=== PATIENT | male | born 1980 | race Caucasian/White ===

== ENCOUNTER 2017-01-23 03:46 | Emergency (ER) ==
[2017-01-23 03:54] VITALS: BP 131/79
[2017-01-23] MEDS ORDERED: CLEOCIN PO ONE (04:20)
[2017-01-23] MEDS ORDERED: MOTRIN PO ONE (04:21)
--- NOTE | 2017-01-23 04:30 | PROVIDER DOCUMENTATION ---
HPI-Rash/Wound/ReCheck - General Chief Complaint: Abscess Stated Complaint: INSECT BITE/STING Time Seen by Provider: 01/23/17 04:17 Source: patient (Patient is a 36 year old white male complaining of red tender lesion over left groin since tonight. Denies fever. Lesion has been draining pus.) Allergies/Adverse Reactions: Allergies Allergy/AdvReac Type Severity Reaction Status Date / Time peas Allergy NAUSEA Verified 01/23/17 03:54 Tetanus Vaccines and Toxoid Allergy SWELLING Verified 01/23/17 03:54 [Tetanus Vaccines & Toxoid] Home Medications: Home Medication List Medication Instructions Recorded Confirmed Last Taken Type Clindamycin HCl 300 mg PO TID #30 capsule 01/23/17 Unknown Rx - History of Present Illness-Dermatology Location: reports: other (left groin) Quality: reports: other (sharp) Severity: reports: moderate Onset/Duration: reports: gradual, this evening Timing: reports: still present Identifiable cause?: No Locality of Occurance: Home Similar Symptoms Previously?: No Recently seen or treated by another doctor?: No Review of Systems - Adult - REVIEW OF SYSTEMS - ADULT Constitutional: denies: chills, fever Eyes: reports: no symptoms reported Ears, Nose, Mouth & Throat: reports: no symptoms reported Cardiovascular: reports: no symptoms reported Respiratory: reports: no symptoms reported Gastrointestinal: reports: no symptoms reported Genitourinary: reports: no symptoms reported Musculoskeletal: reports: no symptoms reported Integumentary: reports: see HPI Neurological: reports: no symptoms reported Psychiatric: reports: no symptoms reported Endocrine: reports: no symptoms reported Hematologic/Lymphatic: reports: no symptoms reported Allergic/Immunologic: reports: no symptoms reported All Other Systems: Reviewed and Negative Past History - Adult - PAST MEDICAL HISTORY-ADULT Review of Records: reports: Old Records Reviewed, Nursing Assessment Review, Medications Reviewed, Social history reviewed & non-contributory. Major Childhood Illnesses: reports: denies history Cardiovascular: reports: denies history Respiratory: reports: asthma Gastrointestinal: reports: colitis Genitourinary: reports: kidney stones Musculoskeletal: reports: arthritis, fibromyalgia Neurological: reports: Seizures/Epilepsy Psychiatric: reports: anxiety, bipolar Endocrine/Immune: reports: denies history Other Conditions: reports: denies history - PRIOR SURGERIES/PROCEDURES Surgical/Procedure History: reports: other (polyps removed from colon) - IMMUNIZATION STATUS Childhood Immunizations: See Nurse Assessment Flu Vaccine: See Nurse Assessment - FAMILY HISTORY Family History: reviewed, not pertinent Physical Exam-General - PHYSICAL EXAM-ADULT Initial Vital Signs Reviewed: Yes - CONSTITUTIONAL General Appearance: appears well, alert - EYES Eyes: other (clear) - HEAD, EARS, NOSE, MOUTH & THROAT HENMT: normocephalic/atraumatic - NECK Neck: supple - RESPIRATORY Respiratory: lungs clear - CARDIOVASCULAR Cardiovascular: regular rate, rhythm - GASTROINTESTINAL (ABDOMEN) Abdominal Exam: normal bowel sounds, non tender, soft - GENITOURINARY Male Genitalia: normal genitalia Rectal Exam: deferred - MUSCULOSKELETAL Back Exam: normal inspection Extremity: other (tender red indurated lesion over left groin with central black eschar) - SKIN Integumentary: normal turgor - NEUROLOGIC Neurologic: grossly normal - PSYCHIATRIC Psych/Mental Status: oriented x 3, anxious Departure - Departure Time of Disposition Order: 04:30 DIAGNOSIS: Spider bite wound Qualifiers: Encounter type: initial encounter Injury intent: accidental or unintentional Qualified Code(s): T63.301A - Toxic effect of unspecified spider venom, accidental (unintentional), initial encounter Disposition: HOME 01 Certified Medical Emergency: Emergent Condition: Stable Additional Instructions: warm compresses to affected area, followup with primary care doctor on Wednesday Prescriptions: Clindamycin HCl 300 mg PO TID #30 capsule Referrals: None,PCP [Primary Care Provider] - Forms: Return to School/Parent Work Instructions: Clindamycin capsules, Spider Bite, [id number]
== END 2017-01-23 04:31 | disposition home or self-care (01) ==
LOC: P.ED 03:46
DX: S30.861A Insect bite (nonvenomous) of abdominal wall, initial encounter (principal); W57.XXXA Bitten or stung by nonvenomous insect and other nonvenomous arthropods, initial encounter; L98.9 Disorder of the skin and subcutaneous tissue, unspecified; M19.90 Unspecified osteoarthritis, unspecified site; M79.7 Fibromyalgia
CPT/HCPCS: 99282

== ENCOUNTER 2017-01-23 04:49 | Emergency (ER) ==
[2017-01-23 04:56] VITALS: BP 127/91
[2017-01-23] MEDS ORDERED: MOTRIN PO ONE (05:02)
[2017-01-23] MEDS ORDERED: NORCO-5 PO ONE (05:03)
--- NOTE | 2017-01-23 05:08 | PROVIDER DOCUMENTATION ---
HPI-Rash/Wound/ReCheck - General Chief Complaint: Abscess Stated Complaint: SPIDER BITE Time Seen by Provider: 01/23/17 04:56 Source: patient Allergies/Adverse Reactions: Allergies Allergy/AdvReac Type Severity Reaction Status Date / Time peas Allergy NAUSEA Verified 01/23/17 03:54 Tetanus Vaccines and Toxoid Allergy SWELLING Verified 01/23/17 03:54 [Tetanus Vaccines & Toxoid] Home Medications: Home Medication List Medication Instructions Recorded Confirmed Last Taken Type Clindamycin HCl 300 mg PO TID #30 capsule 01/23/17 01/23/17 Unknown Rx Hydrocodone/Acetaminophen [[place] 1 each PO Q4-6H PRN PRN #12 tablet 01/23/17 Unknown Rx 5-325 Tablet] Ibuprofen [Motrin] 800 mg PO Q8H PRN PRN #30 tablet 01/23/17 Unknown Rx - History of Present Illness-Dermatology Nature of Presenting Problem: pt states he was driving and around 6 PM he felt a sharp pain in his left groin area and this area has since tdeveloped a black area with a ring of redness around it and it hurts. He was just seen for this moments ago at [facility] and started on Clindamycin. No fevers, abdominal pain or nausea/vomiting Review of Systems - Adult - REVIEW OF SYSTEMS - ADULT Constitutional: denies: chills, fever Eyes: denies: discharge Ears, Nose, Mouth & Throat: denies: ear pain, sinus problem, throat pain Respiratory: denies: cough, shortness of breath Gastrointestinal: denies: abdominal pain, diarrhea, nausea, vomiting Genitourinary: denies: dysuria, frequency, flank pain Musculoskeletal: denies: back pain, muscle aches Integumentary: reports: see HPI Neurological: denies: headache/migraines, numbness, paresthesia Psychiatric: reports: no symptoms reported Endocrine: reports: no symptoms reported Hematologic/Lymphatic: reports: no symptoms reported All Other Systems: Reviewed and Negative Past History - Adult - PAST MEDICAL HISTORY-ADULT Review of Records: reports: Old Records Reviewed, Nursing Assessment Review, Medications Reviewed, Social history reviewed & non-contributory. Major Childhood Illnesses: reports: denies history Cardiovascular: reports: denies history Respiratory: reports: asthma Gastrointestinal: reports: colitis Genitourinary: reports: kidney stones Musculoskeletal: reports: arthritis, fibromyalgia Neurological: reports: Seizures/Epilepsy Psychiatric: reports: anxiety, bipolar Endocrine/Immune: reports: denies history Other Conditions: reports: denies history - PRIOR SURGERIES/PROCEDURES Surgical/Procedure History: reports: other (polyps removed from colon) - IMMUNIZATION STATUS Childhood Immunizations: See Nurse Assessment Flu Vaccine: See Nurse Assessment - FAMILY HISTORY Family History: reviewed, not pertinent - SOCIAL HISTORY Smoking: greater than 1 pack/day Substance Use: alcohol Alcohol Use Frequency: occasionally Living Situation: family Physical Exam-General - PHYSICAL EXAM-ADULT Initial Vital Signs Reviewed: Yes - CONSTITUTIONAL General Appearance: appears well, alert, no apparent distress, anxious - EYES Eyes: pink conjunctivae. negative: scleral icterus - HEAD, EARS, NOSE, MOUTH & THROAT HENMT: normocephalic/atraumatic, pharynx normal - NECK Neck: non-tender, full range of motion, supple, normal inspection. negative: lymphadenopathy - RESPIRATORY Respiratory: chest non-tender, lungs clear, normal breath sounds, no pleuratic chest pain, no respiratory distress - CARDIOVASCULAR Cardiovascular: regular rate, rhythm, no murmur - GASTROINTESTINAL (ABDOMEN) Abdominal Exam: normal bowel sounds, non tender, soft, no organomegaly, no pulsatile mass - MUSCULOSKELETAL Back Exam: normal inspection, no CVA tenderness, no vertebral tenderness Extremity: normal range of motion, non-tender, normal gait, normal inspection, no pedal edema, no calf tenderness - SKIN Integumentary: other (pt has a 2mm raised black area in the left inguinal area with an area of redness of about 1 cm) - 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, grossly normal, no motor/sensory deficits - PSYCHIATRIC Psych/Mental Status: normal mood/affect, normal thought content, normal thought process, oriented x 3 Progress - PLAN OF CARE/RESULTS Progress/Plan/Lab Results: Orders Category Date Time Status Hydrocodone/APAP 5 mg/325 mg [[place]-5] Med 01/23/17 05:03 Discontinued 1 each PO NOW ONE Ibuprofen [Motrin] Med 01/23/17 05:02 Discontinued 800 mg PO NOW ONE Vital Signs Temp Pulse Resp BP Pulse Ox 01/23/17 04:55 97.3 F L 104 H 22 127/91 100 peas Allergy (Verified 01/23/17 03:54) NAUSEA Tetanus Vaccines and Toxoid [Tetanus Vaccines & Toxoid] Allergy (Verified 03:54) SWELLING Clindamycin HCl 300 mg PO TID #30 capsule 01/23/17 Departure - Departure Time of Disposition Order: 05:08 DIAGNOSIS: Spider bite wound Qualifiers: Encounter type: subsequent encounter Injury intent: accidental or unintentional Qualified Code(s): T63.301D - Toxic effect of unspecified spider venom, accidental (unintentional), subsequent encounter Disposition: HOME 01 Certified Medical Emergency: Emergent Condition: Good Additional Instructions: ED Follow Up Instructions: You have been treated by a care provider in the Emergency Department. These instructions are being provided to you so you can have an understanding of how to care for yourself upon discharge. Upon discharge from the Emergency Department, you are responsible for making arrangements for follow-up care by a physician of your choice. Take all prescribed medications as directed. Return to the Emergency Department immediately for any new or worsening symptoms. You may call the Physician Referral phone number at [phone] to obtain a list of Physicians who are taking new patients. Prescriptions: Ibuprofen [Motrin] 800 mg PO Q8H PRN PRN #30 tablet PRN Reason: Pain Hydrocodone/Acetaminophen [[place] 5-325 Tablet] 1 each PO Q4-6H PRN PRN #12 tablet PRN Reason: Pain Referrals: None,PCP [Primary Care Provider] - Instructions: Wound Infection, [id number]
== END 2017-01-23 05:41 | disposition home or self-care (01) ==
LOC: ED 04:49
DX: S30.861A Insect bite (nonvenomous) of abdominal wall, initial encounter (principal); W57.XXXA Bitten or stung by nonvenomous insect and other nonvenomous arthropods, initial encounter; R10.30 Lower abdominal pain, unspecified; M19.90 Unspecified osteoarthritis, unspecified site; M79.7 Fibromyalgia; F17.210 Nicotine dependence, cigarettes, uncomplicated

== ENCOUNTER 2017-01-25 03:59 | Emergency (ER) ==
[2017-01-25 04:05] VITALS: BP 127/87
[2017-01-25] MEDS ORDERED: DECADRON IM ONE (04:14)
[2017-01-25] MEDS ORDERED: PHENERGAN IM ONE (04:14)
--- NOTE | 2017-01-25 04:20 | PROVIDER DOCUMENTATION ---
HPI-Rash/Wound/ReCheck - General Chief Complaint: Insect Bite/Sting Stated Complaint: RECHECK/INSECT BITE Time Seen by Provider: 01/25/17 04:09 Source: patient Allergies/Adverse Reactions: Allergies Allergy/AdvReac Type Severity Reaction Status Date / Time peas Allergy NAUSEA Verified 01/25/17 04:05 Tetanus Vaccines and Toxoid Allergy SWELLING Verified 01/25/17 04:05 [Tetanus Vaccines & Toxoid] Home Medications: Home Medication List Medication Instructions Recorded Confirmed Last Taken Type Clindamycin HCl 300 mg PO TID #30 capsule 01/23/17 01/23/17 Unknown Rx Hydrocodone/Acetaminophen [[place] 1 each PO Q4-6H PRN PRN #12 tablet 01/23/17 Unknown Rx 5-325 Tablet] Ibuprofen [Motrin] 800 mg PO Q8H PRN PRN #30 tablet 01/23/17 Unknown Rx - History of Present Illness-Dermatology Nature of Presenting Problem: pt was likely bitten by a spider 2 days ago and was started on clindamycin and then later also given a norco and motrin RX, he comes back tonight worried that it is worse and he states he vomited once. No fevers. Review of Systems - Adult - REVIEW OF SYSTEMS - ADULT Constitutional: denies: chills, fever Eyes: denies: discharge Ears, Nose, Mouth & Throat: denies: ear pain, sinus problem, throat pain Cardiovascular: denies: chest pain Respiratory: denies: cough, shortness of breath Gastrointestinal: reports: nausea, vomiting (once). denies: abdominal pain, diarrhea Genitourinary: denies: dysuria, frequency Musculoskeletal: denies: muscle aches Integumentary: denies: rash Neurological: denies: headache/migraines, numbness, paresthesia Psychiatric: reports: no symptoms reported Endocrine: reports: no symptoms reported Hematologic/Lymphatic: reports: no symptoms reported Allergic/Immunologic: reports: no symptoms reported All Other Systems: Reviewed and Negative Past History - Adult - PAST MEDICAL HISTORY-ADULT Review of Records: reports: Old Records Reviewed, Nursing Assessment Review, Medications Reviewed, Social history reviewed & non-contributory. Major Childhood Illnesses: reports: denies history Cardiovascular: reports: denies history Respiratory: reports: asthma Gastrointestinal: reports: colitis Genitourinary: reports: kidney stones Musculoskeletal: reports: arthritis, fibromyalgia Neurological: reports: Seizures/Epilepsy Psychiatric: reports: anxiety, bipolar Endocrine/Immune: reports: denies history Other Conditions: reports: denies history - PRIOR SURGERIES/PROCEDURES Surgical/Procedure History: reports: other (polyps removed from colon) - IMMUNIZATION STATUS Childhood Immunizations: See Nurse Assessment Flu Vaccine: See Nurse Assessment - FAMILY HISTORY Family History: reviewed, not pertinent - SOCIAL HISTORY Smoking: less than 1 pack/day Substance Use: alcohol Alcohol Use Frequency: occasionally Living Situation: family Physical Exam-General - PHYSICAL EXAM-ADULT Initial Vital Signs Reviewed: Yes - CONSTITUTIONAL General Appearance: appears well, alert, no apparent distress, anxious - EYES Eyes: pink conjunctivae. negative: scleral icterus - HEAD, EARS, NOSE, MOUTH & THROAT HENMT: normocephalic/atraumatic - NECK Neck: non-tender, full range of motion - RESPIRATORY Respiratory: chest non-tender, lungs clear, normal breath sounds, no pleuratic chest pain, no respiratory distress, no accessory muscle use - CARDIOVASCULAR Cardiovascular: regular rate, rhythm, no murmur - GASTROINTESTINAL (ABDOMEN) Abdominal Exam: normal bowel sounds, non tender, soft, no organomegaly, no pulsatile mass - MUSCULOSKELETAL Back Exam: normal inspection, no CVA tenderness, no vertebral tenderness Extremity: normal range of motion, non-tender, normal gait, normal inspection, no pedal edema, no calf tenderness - SKIN Integumentary: normal color, normal turgor, warm/dry, other (pt has a 3mm raised purple black papule with 1-2 cm of surrounding redness which is slightly larger than when i saw this 48 hours ago. No fluctuance) - NEUROLOGIC Neurologic: grossly normal, no motor/sensory deficits - PSYCHIATRIC Psych/Mental Status: normal mood/affect, normal thought content, normal thought process, oriented x 3, anxious Progress - PLAN OF CARE/RESULTS Progress/Plan/Lab Results: Orders Category Date Time Status Dexamethasone [Decadron] Med 01/25/17 04:14 Discontinued 20 mg IM NOW ONE Promethazine [Phenergan] Med 01/25/17 04:14 Discontinued 50 mg IM NOW ONE Vital Signs Temp Pulse Resp BP Pulse Ox 01/25/17 04:04 97.5 F L 84 20 127/87 100 peas Allergy (Verified 01/25/17 04:05) NAUSEA Tetanus Vaccines and Toxoid [Tetanus Vaccines & Toxoid] Allergy (Verified 04:05) SWELLING Clindamycin HCl 300 mg PO TID #30 capsule 01/23/17 Hydrocodone/Acetaminophen [[place] 5-325 Tablet] 1 each PO Q4-6H PRN PRN #12 tablet 01/23/17 Ibuprofen [Motrin] 800 mg PO Q8H PRN PRN #30 tablet 01/23/17 Departure - Departure Time of Disposition Order: 04:20 DIAGNOSIS: Spider bite wound Qualifiers: Encounter type: subsequent encounter Injury intent: accidental or unintentional Qualified Code(s): T63.301D - Toxic effect of unspecified spider venom, accidental (unintentional), subsequent encounter Disposition: HOME 01 Certified Medical Emergency: Emergent Condition: Good Additional Instructions: ED Follow Up Instructions: You have been treated by a care provider in the Emergency Department. These instructions are being provided to you so you can have an understanding of how to care for yourself upon discharge. Upon discharge from the Emergency Department, you are responsible for making arrangements for follow-up care by a physician of your choice. Take all prescribed medications as directed. Return to the Emergency Department immediately for any new or worsening symptoms. You may call the Physician Referral phone number at [phone] to obtain a list of Physicians who are taking new patients.
== END 2017-01-25 04:36 | disposition home or self-care (01) ==
LOC: ED 03:59
DX: Z09 Encounter for follow-up examination after completed treatment for conditions other than malignant neoplasm (principal); R11.2 Nausea with vomiting, unspecified; M19.90 Unspecified osteoarthritis, unspecified site; M79.7 Fibromyalgia; R56.9 Unspecified convulsions; F41.9 Anxiety disorder, unspecified; F31.9 Bipolar disorder, unspecified; F17.210 Nicotine dependence, cigarettes, uncomplicated
CPT/HCPCS: J2550

== ENCOUNTER 2017-01-26 02:48 | Emergency (ER) ==
--- NOTE | 2017-01-26 03:51 | PROVIDER DOCUMENTATION ---
HPI-Psychological Disorder - General Chief Complaint: Anxiety Stated Complaint: STRESS/HEART Time Seen by Provider: 01/26/17 03:43 Source: patient Allergies/Adverse Reactions: Patient Allergies Allergy/AdvReac Type Severity Reaction Status Date / Time peas Allergy NAUSEA Verified 01/26/17 02:55 Tetanus Vaccines and Toxoid Allergy SWELLING Verified 01/26/17 02:55 [Tetanus Vaccines & Toxoid] Home Medications: Home Medication List Medication Instructions Recorded Confirmed Last Taken Type Clindamycin HCl 300 mg PO TID #30 capsule 01/23/17 01/26/17 01/24/17 Rx Hydrocodone/Acetaminophen [[place] 1 each PO Q4-6H PRN PRN #12 tablet 01/23/1701/24/17 Rx 5-325 Tablet] Ibuprofen [Motrin] 800 mg PO Q8H PRN PRN #30 tablet 01/23/17 01/26/17 01/24/17 Rx Hydroxyzine HCl 25 mg PO TID PRN PRN #30 tablet 01/26/17 Unknown Rx - History of Present Illness-Psych Nature of Presenting Problem: lots of anxiety hx of frequent visits to er for lots of anxiety was walking here from 5 or so miles away decided to call 911 too far to walk not sure about what troubles him.no medications Onset/Duration: reports: unsure Timing: reports: still present Severity: reports: mild Situational problems related to:: reports: other Psychiatric Complaints: reports: anxiety. denies: hallucinating, homicidal thoughts, suicidal ideation Substance Use: reports: none/never Previous psych related hospitalizations?: Yes Patient arrived by:: EMS called by patient Similar Symptoms Previously?: Yes Recently seen or treated by another doctor?: Yes Review of Systems - Adult - REVIEW OF SYSTEMS - ADULT Constitutional: reports: no symptoms reported Eyes: reports: no symptoms reported Ears, Nose, Mouth & Throat: reports: no symptoms reported Cardiovascular: reports: palpitations Respiratory: reports: shortness of breath Gastrointestinal: reports: no symptoms reported Genitourinary: reports: no symptoms reported Musculoskeletal: reports: no symptoms reported Integumentary: reports: no symptoms reported Neurological: reports: no symptoms reported Psychiatric: reports: anxiety, depression, emotional problems. denies: suicidal thoughts Endocrine: reports: no symptoms reported Hematologic/Lymphatic: reports: no symptoms reported Allergic/Immunologic: reports: no symptoms reported Past History - Adult - PAST MEDICAL HISTORY-ADULT Review of Records: reports: Nursing Assessment Review, Medications Reviewed, Social history reviewed & non-contributory. Major Childhood Illnesses: reports: denies history Cardiovascular: reports: denies history Respiratory: reports: asthma Gastrointestinal: reports: colitis Genitourinary: reports: kidney stones Musculoskeletal: reports: arthritis, fibromyalgia Neurological: reports: Seizures/Epilepsy Psychiatric: reports: anxiety, bipolar Endocrine/Immune: reports: denies history Other Conditions: reports: denies history - PRIOR SURGERIES/PROCEDURES Surgical/Procedure History: reports: other (polyps removed from colon) - IMMUNIZATION STATUS Childhood Immunizations: See Nurse Assessment Flu Vaccine: See Nurse Assessment - FAMILY HISTORY Family History: reviewed, not pertinent Physical Exam-Psych Focus - Physical Exam-Psych Initial Vital Signs Reviewed: Yes Appearance: alert Neurological: alert Behavior/Eye Contact/Speech: cooperative, good eye contact, normal speech Thoughts/Hallucinations: normal thought pattern, no apparent hallucination HENMT: normocephalic/atraumatic, moist mucous membranes Neck: non-tender, supple Respiratory: lungs clear Cardiovascular: regular rate, rhythm Abdominal Exam: soft Back Exam: normal inspection Extremity: normal range of motion, non-tender Integumentary: normal color, normal turgor Departure - Departure Time of Disposition Order: 03:52 DIAGNOSIS: Anxiety and depression Disposition: HOME 01 Certified Medical Emergency: Emergent Condition: Stable Additional Instructions: ED Follow Up Instructions: You have been treated by a care provider in the Emergency Department. These instructions are being provided to you so you can have an understanding of how to care for yourself upon discharge. Upon discharge from the Emergency Department, you are responsible for making arrangements for follow-up care by a physician of your choice. Take all prescribed medications as directed. Return to the Emergency Department immediately for any new or worsening symptoms. You may call the Physician Referral phone number at [phone] to obtain a list of Physicians who are taking new patients. Prescriptions: Hydroxyzine HCl 25 mg PO TID PRN PRN #30 tablet PRN Reason: Anxiety
[2017-01-26 04:41] VITALS: BP 125/72
== END 2017-01-26 04:41 | disposition home or self-care (01) ==
LOC: P.ED 02:48
DX: F41.9 Anxiety disorder, unspecified (principal); F32.9 Major depressive disorder, single episode, unspecified; R00.2 Palpitations; R06.02 Shortness of breath; M19.90 Unspecified osteoarthritis, unspecified site; M79.7 Fibromyalgia
CPT/HCPCS: 99283